=== PATIENT | male | born 1970 | race Caucasian/White ===

== ENCOUNTER 2016-06-11 09:08 | Emergency (ER) | payer OTHER ==
[2016-06-11 09:14] VITALS: BP 112/85; PULSE 67; TEMP 97.5; BMI 31.8
--- NOTE | 2016-06-11 10:04 | PDOC ---
History of Present Illness - General Chief Complaint: Injury Stated Complaint: LT ANKLE PAIN Time Seen by Provider: 06/11/16 09:17 History Source: Patient Exam Limitations: No Limitations - History of Present Illness Initial Comments: 06/11/16 10:00 LEFT ANKLE PAIN POST INVERSION INJURY OF THIS AM AT WORK Occurred: reports: just prior to arrival Severity: reports: mild Pain Location: reports: lower extremity Method of Injury: Yes: fall Past History - Past Medical History Allergies/Adverse Reactions: Allergies Allergy/AdvReac Type Severity Reaction Status Date / Time vancomycin AdvReac Intermediate Itching Verified 06/11/16 09:10 Home Medications: Ambulatory Orders NK [No Known Home Medication] 06/11/16 Other medical history: denies - Immunization History Immunization Up to Date: Yes (no flu) - Psycho/Social/Smoking Cessation Hx Anxiety: No Suicidal Ideation: No Smoking History: Former smoker Have you smoked in the past 12 months: No Information on smoking cessation initiated: No Hx Alcohol Use: No Drug/Substance Use Hx: No Substance Use Type: None Hx Substance Use Treatment: No Review of Systems - Review of Systems Constitutional: No: Symptoms Reported, Fever Respiratory: No: Cough ABD/GI: No: Symptoms Reported Musculoskeletal: Yes: Other (TENDER ANKLE LATERAL MALL.) Neurological: Yes: Weakness. No: Symptoms reported, Numbness, Paresthesia Endocrine: No: Symptoms Reported *Physical Exam - Vital Signs Last Vital Signs Temp Pulse Resp BP Pulse Ox 97.5 F L 67 20 112/85 97 06/11/16 09:11 06/11/16 09:11 06/11/16 09:11 06/11/16 09:11 06/11/16 09:11 - Physical Exam General Appearance: Yes: Appropriately Dressed. No: Apparent Distress Neck: positive: Supple. negative: Rigid Respiratory/Chest: positive: Lungs Clear Musculoskeletal: positive: Other (TENDER LATERAL ANKLE) Integumentary: positive: Other (sts, NO ECCHYMOSIS) ED Treatment Course - RADIOLOGY Radiology Studies Ordered: Category Date Time Status ANKLE-LEFT [RAD] Stat Radiology 06/11/16 09:26 Completed Medical Decision Making - Medical Decision Making 06/11/16 10:03 ANKLE STRAIN *DC/Admit/Observation/Transfer Diagnosis at time of Disposition: Strain of left ankle Qualifiers: Encounter type: initial encounter Qualified Code(s): S96.912A - Strain of unspecified muscle and tendon at ankle and foot level, left foot, initial encounter - Discharge Dispostion Disposition: HOME Condition at time of disposition: Stable Admit: No - Patient Instructions Additional Instructions: REST, ICE ELEVATE; USE CRUTCHES X 2 DAYS; SEE LOCAL MD NEXT WEEK IF NO BETTER - Post Discharge Activity Work/School Note: Back to Work
== END 2016-06-11 10:17 | disposition home or self-care (01) ==
LOC: JERFT 09:08
DX: S93.492A Sprain of other ligament of left ankle, initial encounter (principal); X50.1XXA Overexertion from prolonged static or awkward postures, initial encounter; Y93.H9 Activity, other involving exterior property and land maintenance, building and construction; Y92.89 Other specified places as the place of occurrence of the external cause; Y99.0 Civilian activity done for income or pay
CPT/HCPCS: 73610-TC-LT; 99281-25

== ENCOUNTER 2018-02-01 10:21 | Emergency (ER) | payer OTHER ==
[2018-02-01 10:29] VITALS: BP 123/75; PULSE 98; TEMP 98.3; BMI 33.9
--- NOTE | 2018-02-01 10:52 | PDOC ---
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 Last tetanus vaccine was 2 months ago Timing/Duration: 1-3 hours Past History - Past Medical History Allergies/Adverse Reactions: Allergies Allergy/AdvReac Type Severity Reaction Status Date / Time vancomycin AdvReac Intermediate Itching Verified 02/01/18 10:28 Home Medications: Ambulatory Orders Mupirocin Ointment [Bactroban 2% Ointment -] 1 applic TP BID #1 tube 02/01/18 Propranolol HCl 40 mg PO ASDIR 02/01/18 - Immunization History Immunization Up to Date: Yes (no flu) - Suicide/Smoking/Psychosocial Hx Smoking History: Never smoked Have you smoked in the past 12 months: No Information on smoking cessation initiated: No Hx Alcohol Use: No Drug/Substance Use Hx: No Substance Use Type: None Hx Substance Use Treatment: No Review of Systems - Review of Systems Able to Perform ROS?: Yes Is the patient limited Czech proficient: No Constitutional: No: Chills, Diaphoresis, Fever, Loss of Appetite, Malaise, Night Sweats, Weakness, Weight Stable, Unintentional Wgt. Loss, Unexplained wgt Loss, Other HEENTM: No: Eye Pain, Blurred Vision, Tearing, Recent change in vision, Double Vision, Cataracts, Ear Pain, Ocular Prothesis, Ear Discharge, Nose Pain, Nose Congestion, Tinnitus, Nose Bleeding, Hearing Loss, Throat Pain, Throat Swelling , Mouth Pain, Dental Problems, Difficulty Swallowing, Mouth Swelling, Other Respiratory: No: Cough, Orthopnea, Shortness of Breath, SOB with Exertion, SOB at Rest, Stridor, Wheezing, Productive cough, Hemoptysis, Other Cardiac (ROS): No: Chest Pain, Edema, Irregular Heart Rate, Lightheadedness, Palpitations, Syncope, Chest Tightness, Other ABD/GI: No: Abdominal Distended, Abd. Pain w/ defecation, Blood Streaked Bowels , Constipated, Diarrhea, Difficulty Swallowing, Nausea, Poor Appetite, Poor Fluid Intake, Rectal Bleeding, Vomiting, Indigestion, Abdominal cramping, Tarry Stools, Other Musculoskeletal: No: Back Pain, Gout, Joint Pain, Joint Swelling, Muscle Pain, Muscle Weakness, Neck Pain, Joint Stiffness, Other Integumentary: Yes: Other (laceration to left lower leg) All Other Systems: Reviewed and Negative *Physical Exam - Vital Signs Last Vital Signs Temp Pulse Resp BP Pulse Ox 98.3 F 98 H 16 123/75 100 02/01/18 10:24 02/01/18 10:24 02/01/18 10:24 02/01/18 10:24 02/01/18 10:24 - Physical Exam Comments: 02/01/18 10:51 GENERAL: Well developed, well nourished. Awake and alert. No acute distress. HEENT: Normocephalic, atraumatic. PERRLA, EOMI. No conjunctival pallor. Sclera are non- icteric. Moist mucous membranes. Oropharynx is clear. NECK: Supple. Full ROM. No JVD. Carotid pulses 2+ and symmetric, without bruits. No thyromegaly. No lymphadenopathy. CARDIOVASCULAR: Regular rate and rhythm. No murmurs, rubs, or gallops. Distal pulses are 2+ and symmetric. PULMONARY: No evidence of respiratory distress. Lungs clear to auscultation bilaterally. No wheezing, rales or rhonchi. ABDOMINAL: Soft. Non-tender. Non-distended. No rebound or guarding. No organomegaly. Normoactive bowel sounds. MUSCULOSKELETAL Normal range of motion at all joints. No bony deformities or tenderness. No CVA tenderness. EXTREMITIES: No cyanosis. No clubbing. No edema. No calf tenderness. SKIN: 1 cm superficial linear laceration to lateral aspects of left lower leg with mild bleeding. NEUROLOGICAL: Alert, awake, appropriate. Cranial nerves 2-12 intact. No deficits to light touch and temperature in face, upper extremities and lower extremities. No motor deficits in the in face, upper extremities and lower extremities. Normoreflexic in the upper and lower extremities. Normal speech. Toes are down- going bilaterally. Gait is normal without ataxia. PSYCHIATRIC: Cooperative. Good eye contact. Appropriate mood and affect. General Appearance: Yes: Nourished, Appropriately Dressed. No: Apparent Distress Procedures - Laceration/Wound Repair Left Lower Anterior Lateral Leg Wound Length: to 2.5 cm (1cm) Wound Explored: clean Wound's Depth, Shape: superficial, linear Irrigated w/ Saline: No Betadine Prep: Yes Wound Repaired With: Steri-strips, Dermabond Sterile Dressing Applied: Yes Splint Applied: No Sling Applied: No Medical Decision Making - Medical Decision Making 02/01/18 10:51 Patient with no sig Past medical history presenting with complaint of laceration to left lower leg while work today. Exam shows 1 cm superficial linear laceration to lateral aspect of left lower leg. Wound cleaned and closed with Dermabond. Steri-Strips applied to wound. Patient up-to-date on tetanus vaccine *DC/Admit/Observation/Transfer Diagnosis at time of Disposition: Laceration of left leg Qualifiers: Encounter type: initial encounter Qualified Code(s): S81.812A - Laceration without foreign body, left lower leg, initial encounter - Discharge Dispostion Disposition: HOME Condition at time of disposition: Stable Decision to Admit order: No - Prescriptions Prescriptions: Mupirocin Ointment [Bactroban 2% Ointment -] 1 applic TP BID #1 tube - Referrals Referrals: Deny Croft MD [Primary Care Provider] - - Patient Instructions Printed Discharge Instructions: DI for Laceration Repair Steri-Strips Additional Instructions: Apply prescribed topical cream twice a day to wound until healed. Remove apply Steri-Strips in 5 days - Post Discharge Activity
== END 2018-02-01 11:01 | disposition home or self-care (01) ==
LOC: JERFT 10:21
PROC: 0HQLXZZ Repair Left Lower Leg Skin, External Approach (ICD-10-PCS; principal; 2018-02-01)
DX: S81.812A Laceration without foreign body, left lower leg, initial encounter (principal); W45.8XXA Other foreign body or object entering through skin, initial encounter; W22.8XXA Striking against or struck by other objects, initial encounter; Y93.H2 Activity, gardening and landscaping; Y92.89 Other specified places as the place of occurrence of the external cause; Y99.0 Civilian activity done for income or pay
CPT/HCPCS: 99281-25

== ENCOUNTER 2019-02-04 11:20 | Emergency (ER) | payer BC, OTHER ==
[2019-02-04 11:26] VITALS: BP 96/60; PULSE 89; TEMP 97.5; BMI 34.5
--- NOTE | 2019-02-04 11:48 | PDOC ---
Attending Attestation - Resident Resident Name: Jose A Friendson - ED Attending Attestation I have performed the following: I have examined & evaluated the patient, The case was reviewed & discussed with the resident, I agree w/resident's findings & plan, Exceptions are as noted - HPI HPI: 48 yo M history headaches presents with RLE redness. He states that he noticed pain in his R lower leg upon waking up this morning. He looked at it and noticed that it was red, warm, and painful. He also noted that he had a fever yesteday. He has been taking ibuprofen for the fever. He states he had an abscess with cellulitis to the L knee area in the past, was admitted to the hospital for more than a week with the infection. - Physicial Exam PE: GENERAL: Awake, alert, and fully oriented, in no acute distress HEAD: No signs of trauma EYES: PERRLA, EOMI, sclera anicteric, conjunctiva clear ENT: Auricles normal inspection, hearing grossly normal, nares patent, oropharynx clear without exudates. Moist mucosa NECK: Normal ROM, supple, no lymphadenopathy, JVD, or masses LUNGS: Breath sounds equal, clear to auscultation bilaterally. No wheezes, and no crackles HEART: Regular rate and rhythm, normal S1 and S2, no murmurs, rubs or gallops ABDOMEN: Soft, nontender, normoactive bowel sounds. No guarding, no rebound. No masses EXTREMITIES: Normal range of motion, no edema. No clubbing or cyanosis. No cords, erythema, or tenderness NEUROLOGICAL: Cranial nerves II through XII grossly intact. Normal speech, normal gait. Motor and sensation intact SKIN: Warm, dry, normal turgor. +Erythema, warmth, and tenderness to R lower leg in a band-like distribution. Distal N/V intact with normal cap refill. - Medical Decision Making Pt with RLE cellulitis, no obvious source- no open lesions, no recent trauma. Will treat for MRSA. Although it is circumferential, there is no swelling, no evidence of vascular compromise. Discussed with patient- he does not want to be admitted to the hospital. Will outline the borders of the cellulitis. I urged him to return to the ED tomorrow to have the area re-examined to be sure it was improving. If it is not, I counseled him that he will have to be admitted for IV antibiotics.
--- NOTE | 2019-02-04 12:08 | PDOC ---
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 Patient reports acute right lower extremity redness, pain, and warmth beginning this AM. Yesterday (02/03/19 ) reports typical bi frontal, dull headache, followed by vomiting x 1 NBNB emesis, myalgais, "shaking," and fatigue. also reports oral temp 102.0 Tmax. Advil Q4 hours beginning yesterday. Recent travel [place], and [place] within 2 weeks. Self administered ( non prescribed) testosterone injections. H/o left knee abscess. Denies trauma RLE. Patient denies FULLER, vision change, palpitations, cough, wheezing, orthopena, PND , pruritus N/V, F,C, CP, SOB, urinary complaints, hematuria, BPR, abdominal pain , diarrhea, constipation, lightheadedness, weakness, sensory changes. PMHx: as noted above ROS: as noted SHx: distant tobacco use 1ppd x 15 years ago. Denies Etoh, IVDA. Allergies: Vancomycin-itching Past History - Past Medical History Allergies/Adverse Reactions: Allergies Allergy/AdvReac Type Severity Reaction Status Date / Time vancomycin AdvReac Intermediate Itching Verified 02/04/19 11:26 Home Medications: Ambulatory Orders Mupirocin Ointment [Bactroban 2% Ointment -] 1 applic TP BID #1 tube 02/01/18 Propranolol HCl 40 mg PO ASDIR 02/01/18 Cephalexin Monohydrate [Keflex -] 500 mg PO Q6H #28 capsule MDD 4 tab 02/04/19 Sulfamethoxazole/Trimethoprim [Bactrim Ds -] 1 tab PO BID #14 tablet 02/04/19 COPD: No - Immunization History Immunization Up to Date: Yes (no flu) - Suicide/Smoking/Psychosocial Hx Smoking History: Never smoked Have you smoked in the past 12 months: No Hx Alcohol Use: No Drug/Substance Use Hx: No Substance Use Type: None Hx Substance Use Treatment: No Review of Systems - Review of Systems Comments:: 02/04/19 11:51 GENERAL/CONSTITUTIONAL: No fever or chills. No weakness. HEAD, EYES, EARS, NOSE AND THROAT: No change in vision. No ear pain or discharge. No sore throat. CARDIOVASCULAR: No chest pain or shortness of breath RESPIRATORY: No cough, wheezing, or hemoptysis. GASTROINTESTINAL: No nausea, vomiting, diarrhea or constipation. GENITOURINARY: No dysuria, frequency, or change in urination. MUSCULOSKELETAL: + RLE redness. + myalgias. No neck or back pain. SKIN: No rash NEUROLOGIC: No headache, vertigo, loss of consciousness, or change in strength/ sensation. ENDOCRINE: No increased thirst. No abnormal weight change HEMATOLOGIC/LYMPHATIC: No anemia, easy bleeding, or history of blood clots. ALLERGIC/IMMUNOLOGIC: No hives or skin allergy. *Physical Exam - Vital Signs Last Vital Signs Temp Pulse Resp BP Pulse Ox 97.5 F L 89 18 96/60 99 02/04/19 11:22 02/04/19 11:22 02/04/19 11:22 02/04/19 11:22 02/04/19 11:22 - Physical Exam Comments: 02/04/19 11:51 GENERAL: Awake, alert, and fully oriented, in no acute distress HEAD: No signs of trauma, normocephalic, atraumatic EYES: PERRLA, EOMI, sclera anicteric, conjunctiva clear ENT: Auricles normal inspection, hearing grossly normal, nares patent, oropharynx clear without exudates. Moist mucosa NECK: Normal ROM, supple, no lymphadenopathy, JVD, or masses LUNGS: No distress, speaks full sentences, clear to auscultation bilaterally HEART: Regular rate and rhythm, normal S1 and S2, no murmurs, rubs or gallops, peripheral pulses normal and equal bilaterally. ABDOMEN: Soft, nontender, normoactive bowel sounds. No guarding, no rebound. No masses EXTREMITIES : + RLE erythema, extending from ankle to tib/fib, with clear, indistinct margins, warmth, and ttp. Absent edema, or streaking. Absent Normal inspection, Normal range of motion, no edema. No clubbing or cyanosis. 2 + pulses throughout. 5/5 LE strength. NEUROLOGICAL: Cranial nerves II through XII grossly intact. Normal speech, normal gait, no focal sensorimotor deficits SKIN: Warm, Dry, normal turgor, no rashes or lesions noted ED Treatment Course - LABORATORY CBC & Chemistry Diagram: 02/04/19 12:30 02/04/19 12:30 Medical Decision Making - Medical Decision Making 02/04/19 11:52 48 yo M with h/o HTN, FULLER disorder, who p/w RLE redness. BP 96/60, vitals wnl, AF , A&Ox3. Physical exam notable for + RLE erythema, extending from ankle to tib/ fib, with clear, indistinct margins, warmth, and ttp. RLE neurovasculalry intact. Probable cellulitss RLE. R/o DVT given recent flight, hormone supplementation. Absent evidence abscess, necrotizing fascitiis, lymphangitic spread. Will treat with oral analgesia, antibiotics, reassess. ED Course: Tylenol 650 mg PO DUPLEX RLE 02/04/19 12:20 Absent hand/face involvement, h/o immunocpromised status, or recent antibiotic use/treatment failure. Patient 0/4 SIRS criteria Patient candidate for outpt. therapy with PMD f/u Right tib/fib RAD: No acute patholgy Laboratory Tests 02/04/19 02/04/19 02/04/19 12:30 12:30 13:00 WBC 11.3 H Hgb 15.2 Hct 44.2 Plt Count 135 D Sodium 138 Potassium 4.6 BUN 23.2 H Creatinine 1.2 Urine Color Yellow Urine Appearance Clear Urine Blood 1+ H Urine Nitrite Negative Ur Leukocyte Esterase Negative Urine WBC (Auto) 1.5 Urine RBC (Auto) 4.6 stable for d/c with return precautions. 02/04/19 14:06 Keflex, and Bactrim sent to pharmacy Patient advised to f/u in ED for cellulitis check *DC/Admit/Observation/Transfer Diagnosis at time of Disposition: Cellulitis of right leg - Discharge Dispostion Condition at time of disposition: Stable Decision to Admit order: No - Prescriptions Prescriptions: Cephalexin Monohydrate [Keflex -] 500 mg PO Q6H #28 capsule MDD 4 tab Sulfamethoxazole/Trimethoprim [Bactrim Ds -] 1 tab PO BID #14 tablet - Referrals Referrals: Deny Croft MD [Primary Care Provider] - - Patient Instructions Printed Discharge Instructions: DI for Cellulitis -- Adult Additional Instructions: Please return to the emergency department with any new or worsening symptoms or concerns. Please follow up with your primary care physician within 72 hours. Please take Bactrim twice a day, Keflex four times a day for right leg cellulitis/infection. - Post Discharge Activity
[2019-02-04] MEDS ORDERED: ACETAMINOPHEN 325 MG TABLET (FP) PO ONE (12:10)
[2019-02-04] MEDS ORDERED: ACETAMINOPHEN 325 MG TABLET (FP) ONE (12:16)
[2019-02-04] MEDS ORDERED: SULFAMETHOXAZOLE/TRIMETHOPRIM 800MG/160MG D.S. TABLET PO ONE (12:32)
[2019-02-04] MEDS ORDERED: SULFAMETHOXAZOLE/TRIMETHOPRIM 800MG/160MG D.S. TABLET ONE (12:45)
[2019-02-04 13:02] LABS: BASO % 0.2 % (0-2.0); HEMATOCRIT 44.2 % (35.4-49); HEMOGLOBIN 15.2 GM/dL (11.7-16.9); LYMPH % 4.3 % (8-40); MCHC 34.3 g/dl (32.0-35.9); MEAN CELL VOLUME 87.6 fl (80-96); MEAN PLT VOLUME 8.5 fl (7.5-11.1); MONO % 5.2 % (3.8-10.2); NEUT % 90.3 % (42.8-82.8); PLATELET COUNT 135 K/MM3 (134-434); RBC 5.05 M/mm3 (4.00-5.60); RDW 13.4 % (11.9-15.9); WHITE BLOOD COUNT 11.3 K/mm3 (4.0-10.0)
[2019-02-04 13:30] LABS: ALBUMIN 3.7 g/dl (3.4-5.0); BILIRUBIN,TOTAL 0.9 mg/dL (0.2-1); BLOOD UREA NITROGEN 23.2 mg/dL (7-18); CALCIUM 9.1 mg/dL (8.5-10.1); CREATININE 1.2 mg/dL (0.55-1.3); POTASSIUM 4.6 mmol/L (3.5-5.1); TOT PROT 6.8 g/dl (6.4-8.2)
[2019-02-04 13:31] LABS: PH,URINE 5.5 (5.0-8.0); URINE APPEARANCE Clear; URINE BILIRUBIN Negative (NEGATIVE); URINE COLOR Yellow; URINE GLUCOSE (UA) Negative (NEGATIVE); URINE KETONE Trace (NEGATIVE); URINE LEUK ESTERASE Negative (NEGATIVE); URINE NITRITE Negative (NEGATIVE); URINE PROTEIN Trace (NEGATIVE); URINE UROBILINOGEN 0.2 mg/dL (0.2-1.0)
[2019-02-04 13:41] LABS: EPI CELLS 1.9 /HPF (0-5/HPF); HYALINE CASTS 16.94 /lpf (0-8); URINE BACTERIA 0.5 /hpf (NEGATIVE); URINE RBC 4.6 /hpf (0-4); URINE WBC 1.5 /hpf (0-5)
[2019-02-04] MEDS ORDERED: CEPHALEXIN MONOHYDRATE 500 MG CAPSULE (UD) PO ONE (14:07)
[2019-02-04] MEDS ORDERED: CEPHALEXIN MONOHYDRATE 500 MG CAPSULE (UD) ONE (14:34)
== END 2019-02-04 14:56 | disposition home or self-care (01) ==
LOC: JER 11:20
DX: L03.115 Cellulitis of right lower limb (principal)
CPT/HCPCS: 36415; 73590-TC-RT-FY; 80053; 81003; 85025; 87040; 93971-TC; 99283-25

== ENCOUNTER 2019-02-04 20:58 | Inpatient (IN) | payer BC ==
[2019-02-04] MEDS ORDERED: AMPICILLIN NA/SULBACTAM NA 1.5 GM in SODIUM CHLORIDE 100 ML IVPB ONE (21:24)
[2019-02-04] MEDS ORDERED: SODIUM CHLORIDE 0.9% 500 ML INFUS.BAG IV ONE (21:24)
[2019-02-04] MEDS ORDERED: AMPICILLIN NA/SULBACTAM NA 3 GM in SODIUM CHLORIDE 100 ML IVPB ONE (21:30)
--- NOTE | 2019-02-04 22:05 | PDOC ---
Documentation entered by Janice Castellon SCRIBE, acting as scribe for Alexandria Rich MD. Alexandria Rich MD: This documentation has been prepared by the Ravinder cary Adrianna, SCRIBE, under my direction and personally reviewed by me in its entirety. I confirm that the documentation accurately reflects all work, treatment, procedures, and medical decision making performed by me. History of Present Illness - General Chief Complaint: Redness To Affected Area Stated Complaint: CELLULITIS RT LEG Time Seen by Provider: 02/04/19 21:12 - History of Present Illness Initial Comments: The patient is a 48 year old male, with a significant PMH of headache disorder, who presents to the ED for evaluation of RLE cellulitis for one day. Patient was seen in the ED earlier today for this complaint, and was discharged with antibiotics. Patient notes the cellulitis continued to spread, and he presents with redness spreading to the upper half of the RLE outside of the marked lines (from ankle to mid-alcantara to now knee and thigh) done earlier today in the ED. He endorses pain with ambulation, chills, and fevers (max temp of 102 for which he took tylenol prior to arrival). US in ED earlier today was negative for DVT. Patient denies trauma to the RLE. Patient denies CP, SOB, urinary complaints, abdominal pain, diarrhea, constipation, lightheadedness, weakness, sensory changes. Allergies: Vancomycin Surgical History: None reported Social History: Former smoker. Denies EtOH or illicit drug use. PCP: Dr. Croft Past History - Past Medical History Allergies/Adverse Reactions: Allergies Allergy/AdvReac Type Severity Reaction Status Date / Time No Known Drug Allergies Allergy Verified 02/05/19 13:32 vancomycin AdvReac Intermediate Itching Verified 02/04/19 21:03 Home Medications: Ambulatory Orders Mupirocin Ointment [Bactroban 2% Ointment -] 1 applic TP BID #1 tube 02/01/18 Propranolol HCl 20 mg PO BID 02/01/18 Cephalexin Monohydrate [Keflex -] 500 mg PO Q6H #28 capsule MDD 4 tab 02/04/19 Sulfamethoxazole/Trimethoprim [Bactrim Ds -] 1 tab PO BID #14 tablet 02/04/19 COPD: No - Immunization History Immunization Up to Date: Yes (no flu) - Suicide/Smoking/Psychosocial Hx Smoking History: Never smoked Have you smoked in the past 12 months: No Hx Alcohol Use: No Drug/Substance Use Hx: No Substance Use Type: None Hx Substance Use Treatment: No Review of Systems - Review of Systems Comments:: GENERAL/CONSTITUTIONAL: +Fever (max temp 102). +Chills. No weakness. HEAD, EYES, EARS, NOSE AND THROAT: No change in vision. No ear pain or discharge. No sore throat. CARDIOVASCULAR: No chest pain or shortness of breath. RESPIRATORY: No cough, wheezing, or hemoptysis. GASTROINTESTINAL: No diarrhea or constipation. GENITOURINARY: No dysuria, frequency, or change in urination. MUSCULOSKELETAL:+RLE pain exacerbated with ambulation. No joint or muscle swelling. No neck or back pain. SKIN: +RLE redness and cellulitis that has spread outside of the marked lines ( from ankle to mid-alcantara) traveling to the upper half of the RLE (over knee and thigh). NEUROLOGIC: No headache, vertigo, loss of consciousness, or change in strength/ sensation. ENDOCRINE: No increased thirst. No abnormal weight change. HEMATOLOGIC/LYMPHATIC: No anemia, easy bleeding, or history of blood clots. *Physical Exam - Vital Signs Last Vital Signs Temp Pulse Resp BP Pulse Ox 98.6 F 105 H 18 96/57 L 99 02/04/19 21:01 02/04/19 21:01 02/04/19 21:01 02/04/19 21:01 02/04/19 21:01 - Physical Exam Comments: CONSTITUTIONAL: Well-appearing; well-nourished; in no apparent distress. Afebrile HEAD: Normocephalic; atraumatic EYES: PERRL; EOM intact ENMT: External appears normal; normal oropharynx NECK: Supple; non-tender; no cervical lymphadenopathy CARD: Normal S1, S2; no murmurs, rubs, or gallops RESP: Normal chest excursion with respiration; breath sounds clear and equal bilaterally; no wheezes, rhonchi, or rales ABD: Soft, non-distended; non-tender; no palpable organomegaly, no palpable hernias EXT: +Circumferential dark red cellulitis of the RLE without crepitus. +Patches of cellulitis traveling up his leg, most prominent at the knee and upper thigh. No calf tenderness. Normal ROM in all four extremities; distal pulses intact SKIN: +Circumferential dark red cellulitis of the RLE without crepitus. + Patches of cellulitis traveling up his leg, most prominent at the knee and upper thigh. No calf tenderness. NEURO: No focal neurological deficiencies. Heart Score/ECG Review - ECG Intrepretation Rhythm: Regular Rhythm - [place]: Normal - P and [place] Prominent R with upright T in V1 (true posterior [place]): No Delta Wave(s) Present: No WPW: No - ST and T Early Repolarization: No Non Specific ST-T Wave changes: No - ECG Impressions Normal ECG: Yes Non-specific ST Elevation: No Ischemic Changes: No ED Treatment Course - LABORATORY CBC & Chemistry Diagram: 02/05/19 07:49 02/05/19 07:49 - Medications Given in the ED: ED Medications Discontinued Medications Generic Name Dose Route Start Last Admin Trade Name Freq PRN Reason Stop Dose Admin Ampicillin Sodium/Sulbactam 100 mls @ 200 mls/hr 02/04/19 21:24 02/04/19 21: 34 Sodium 1.5 gm/ Sodium Chloride IVPB 02/04/19 21:53 Not Given ONCE ONE Sodium Chloride 1,000 ml 02/04/19 21:24 02/04/19 21:53 Normal Saline - IV 02/04/19 21:25 1,000 ml ONCE ONE Administration Medical Decision Making - Medical Decision Making 02/04/19 22:04 Pt returns with worsening lymphangitic spread of cellulitis up his right leg. He also had fever to 102F at home, resolved with advil. 02/04/19 22:21 CBC and lactic acid normal, however, cellulitis/lymphangitis are spreading. Pt has considerable pain. 02/05/19 21:55 Pt will be admitted for IV abx *DC/Admit/Observation/Transfer Diagnosis at time of Disposition: Cellulitis of right leg, Cellulitis of left thigh, Cellulitis of knee, left, Lymphangitis - Discharge Dispostion Condition at time of disposition: Guarded Decision to Admit order: Yes - Referrals - Patient Instructions - Post Discharge Activity
[2019-02-04 22:11] LABS: BASO % 0.4 % (0-2.0); HEMATOCRIT 42.1 % (35.4-49); HEMOGLOBIN 14.7 GM/dL (11.7-16.9); LYMPH % 8.8 % (8-40); MCHC 34.9 g/dl (32.0-35.9); MEAN CELL VOLUME 85.9 fl (80-96); NEUT % 84.8 % (42.8-82.8); PLATELET COUNT 140 K/MM3 (134-434); RDW 13.3 % (11.9-15.9); WHITE BLOOD COUNT 8.3 K/mm3 (4.0-10.0)
[2019-02-04] MEDS ORDERED: CEFAZOLIN 1 GM/D5W 1 GM/50 ML BAG IVPB SCH (23:15)
[2019-02-04] MEDS ORDERED: CEFAZOLIN 1 GM/D5W 1 GM/50 ML BAG ONE (23:19)
--- NOTE | 2019-02-04 23:42 | HP ---
CHIEF COMPLAINT: RLE cellulitis PCP: None HISTORY OF PRESENT ILLNESS: Pt. is a 48 y.o. M w/ PMHx. of LLE cellulitis and abcess (MRSA positive treated with Ceftaroline and Bactrim). Pt. states that when he woke up this AM he noticed his RLE was red around the alcantara and that the lesion was painful to palpation ER course was notable for: (1) (2) (3) Recent Travel: PAST MEDICAL HISTORY: PAST SURGICAL HISTORY: Social History: Smoking: Alcohol: Drugs: Family History: Allergies vancomycin Adverse Reaction (Intermediate, Verified 02/04/19 21:03) Itching RECEIVED IN ER HOME MEDICATIONS: Home Medications Medication Instructions Recorded Mupirocin Ointment [Bactroban 2% 1 applic TP BID #1 tube 02/01/18 Ointment -] Propranolol HCl 20 mg PO BID 02/01/18 Cephalexin Monohydrate [Keflex -] 500 mg PO Q6H #28 capsule MDD 4 tab 02/04/19 Sulfamethoxazole/Trimethoprim 1 tab PO BID #14 tablet 02/04/19 [Bactrim Ds -] REVIEW OF SYSTEMS CONSTITUTIONAL: Absent: fever, chills, diaphoresis, generalized weakness, malaise, loss of appetite, weight change HEENT: Absent: rhinorrhea, nasal congestion, throat pain, throat swelling, difficulty swallowing, mouth swelling, ear pain, eye pain, visual changes CARDIOVASCULAR: Absent: chest pain, syncope, palpitations, irregular heart rate, lightheadedness , peripheral edema RESPIRATORY: Absent: cough, shortness of breath, dyspnea with exertion, orthopnea, wheezing, stridor, hemoptysis GASTROINTESTINAL: Absent: abdominal pain, abdominal distension, nausea, vomiting, diarrhea, constipation, melena, hematochezia GENITOURINARY: Absent: dysuria, frequency, urgency, hesitancy, hematuria, flank pain, genital pain MUSCULOSKELETAL: Absent: myalgia, arthralgia, joint swelling, back pain, neck pain SKIN: Absent: rash, itching, pallor HEMATOLOGIC/IMMUNOLOGIC: Absent: easy bleeding, easy bruising, lymphadenopathy, frequent infections ENDOCRINE: Absent: unexplained weight gain, unexplained weight loss, heat intolerance, cold intolerance NEUROLOGIC: Absent: headache, focal weakness or paresthesias, dizziness, unsteady gait, seizure, mental status changes, bladder or bowel incontinence PSYCHIATRIC: Absent: anxiety, depression, suicidal or homicidal ideation, hallucinations. PHYSICAL EXAMINATION Vital Signs - 24 hr 02/04/19 02/04/19 21:01 21:10 Temperature 98.6 F Pulse Rate 105 H Respiratory 18 Rate Blood Pressure 96/57 L O2 Sat by Pulse 99 99 Oximetry (%) GENERAL: Awake, alert, and fully oriented, in no acute distress. HEAD: Normal with no signs of trauma. EYES: Pupils equal, round and reactive to light, extraocular movements intact, sclera anicteric, conjunctiva clear. No lid lag. EARS, NOSE, THROAT: Ears normal, nares patent, oropharynx clear without exudates. Moist mucous membranes. NECK: Normal range of motion, supple without lymphadenopathy, JVD, or masses. LUNGS: Breath sounds equal, clear to auscultation bilaterally. No wheezes, and no crackles. No accessory muscle use. HEART: Regular rate and rhythm, normal S1 and S2 without murmur, rub or gallop. ABDOMEN: Soft, nontender, not distended, normoactive bowel sounds, no guarding, no rebound, no masses. No hepatomegaly or splenomegaly. MUSCULOSKELETAL: Normal range of motion at all joints. No bony deformities or tenderness. No CVA tenderness. UPPER EXTREMITIES: 2+ pulses, warm, well-perfused. No cyanosis. No clubbing. No peripheral edema. LOWER EXTREMITIES: 2+ pulses, warm, well-perfused. No calf tenderness. No peripheral edema. NEUROLOGICAL: Cranial nerves II-XII intact. Normal speech. Normal gait. PSYCHIATRIC: Cooperative. Good eye contact. Appropriate mood and affect. SKIN: Warm, dry, normal turgor, no rashes or lesions noted, normal capillary refill. Laboratory Results - last 24 hr 02/04/19 02/04/19 21:40 21:40 WBC 8.3 RBC 4.90 Hgb 14.7 Hct 42.1 MCV 85.9 MCH 30.0 MCHC 34.9 RDW 13.3 Plt Count 140 MPV 9.0 Absolute Neuts (auto) 7.0 Neutrophils % 84.8 H Lymphocytes % 8.8 D Monocytes % 6.0 Eosinophils % 0.0 Basophils % 0.4 Nucleated RBC % 0 Lactic Acid 0.8 ASSESSMENT/PLAN: ATTENDING PHYSICIAN STATEMENT I saw and evaluated the patient. I reviewed the resident's note and discussed the case with the resident. I agree with the resident's findings and plan as documented. SUBJECTIVE: OBJECTIVE: ASSESSMENT AND PLAN:
--- NOTE | 2019-02-05 00:09 | PN ---
Teaching Attending Note Name of Resident: Ceferino Zamora ATTENDING PHYSICIAN STATEMENT I saw and evaluated the patient. Chart, data, reviewed. I reviewed the resident's note and discussed the case with the resident. I agree with the resident's findings and plan as documented. SUBJECTIVE: 48yo man with had Left lower ext MRSA cellulitis in 2016, presents with one day of right leg erythema ,pain, warmth. Denied fevers or chills. No cuts or trauma to leg that he can recall. Patient seen earlier in ER and prescribed bactrim, keflex but returned to er before taking po abx due to worsening of erythema. OBJECTIVE: Last Vital Signs Temp Pulse Resp BP Pulse Ox 98.6 F 105 H 18 96/57 L 99 02/04/19 21:01 02/04/19 21:01 02/04/19 21:01 02/04/19 21:01 02/04/19 21:10 general - nad, aaox3, well built heent - at, nc neck supple cv -s1+s2+ rrr chest clear abdomen -obese ext -right leg circumferencial erythema, no fluctuance, no abscess appreciated, warm to touch Abnormal Lab Results 02/04/19 21:40 Neutrophils % 84.8 H xray- right leg- wnl, vascular study- no dvt ASSESSMENT AND PLAN: right leg cellulitis, past mrsa, previous culture was senstive to clindamycin. Vancomycin allergy might actually be red person syndome. No DVT, no abscess seen. -med/surg -blood culture x2 -clindamycin 600mg IV q8hrs -IV fluid hydration -dvt ppx -heparin sc
[2019-02-05] MEDS ORDERED: CLINDAMYCIN 600MG PREMIX IVPB 600 MG/50 ML BAG IVPB ONE ×2 (02:33→08:38)
[2019-02-05] MEDS: SODIUM CHLORIDE 1,000 ML IV SCH ×2 (02:37→08:48)
[2019-02-05] MEDS: CLINDAMYCIN 600MG PREMIX IVPB 600 MG/50 ML BAG IVPB SCH ×2 (02:37→09:00)
[2019-02-05] MEDS ORDERED: ENOXAPARIN NA (PORCINE) 40 MG/0.4 ML DISP.SYRIN SQ ONE (08:38)
[2019-02-05] MEDS ORDERED: PANTOPRAZOLE SODIUM 40 MG VIAL ONE (08:39)
[2019-02-05] MEDS ORDERED: PIPERACILLIN/TAZOB 3.375 GM 3.375 GM/50 ML BAG IVPB ONE (09:10)
[2019-02-05] MEDS ORDERED: PIPERACILLIN/TAZOB 4.5 GM 4.5 GM in DEXTROSE 5%-WATER 100 ML IVPB ONE (09:17)
[2019-02-05] MEDS ORDERED: PIPERACILLIN/TAZOB 4.5 GM 4.5 GM/100 ML BAG IVPB ONE (09:19)
--- NOTE | 2019-02-05 09:25 | PN ---
Progress Note (short form) - Note Progress Note: Subjective: no fever or chills here, but reports fever and chills and body aches x 2 days. has no pain in R leg but it is bothering shantelm. no FULLER , took his propranolol this am. Objective: Vital Signs: Last Vital Signs Temp Pulse Resp BP Pulse Ox 98.2 F 81 18 114/71 99 02/05/19 08:25 02/05/19 08:25 02/05/19 08:25 02/05/19 08:25 02/05/19 08:25 Laboratory Results - last 24 hr 02/04/19 02/04/19 21:40 21:40 WBC 8.3 RBC 4.90 Hgb 14.7 Hct 42.1 MCV 85.9 MCH 30.0 MCHC 34.9 RDW 13.3 Plt Count 140 MPV 9.0 Absolute Neuts (auto) 7.0 Neutrophils % 84.8 H Lymphocytes % 8.8 D Monocytes % 6.0 Eosinophils % 0.0 Basophils % 0.4 Nucleated RBC % 0 Lactic Acid 0.8 Physical Exam: NAD , Awake, pleasant and cooperative . MMM. round equal reactive pupils, no facial droop. CV: RRR, no MRG Lungs: CTAB Abd: soft, obese, NT, ND. Ext : R leg circumferential erythema. with extension beyond the line. with streaking to the anterior thigh. No lymph nodes felt in grois. LLE with no erythema or edema . DP 2+ b/l No fungal infection in toes webs . No skin break down Assessment/Plan: Pleasant 48 y/o man with h/o Migraines, and L knee MRSA cellulitis who presented with worsening erythema of RLE. he was diagnosed with cellulitis 1- RLE cellulitis: reports systemic symptoms of chills, fevers, and aches. erythema is extending beyond the line drawn yesterday. received unasyn then clindamycin. In past, he report itching during vanco infusion , which stopped immediately after infusion Previous cx reviewed. - cont clinda - add zosyn - blood cx sent on 02/04 will follow - consult ID. - repeat CBC. - monitor for sepsis signs - cont IVF for now 2- H/o Migraines: - cont propranolol - if needed can use NSAIDs for FULLER 3- DVT PX : Lovenox Visit type - Emergency Visit Emergency Visit: Yes ED Registration Date: 02/04/19 Care time: The patient presented to the Emergency Department on the above date and was hospitalized for further evaluation of their emergent condition. - New Patient This patient is new to me today: Yes Date on this admission: 02/05/19 - Critical Care Critical Care patient: No
[2019-02-05] MEDS: ENOXAPARIN NA (PORCINE) 40 MG/0.4 ML DISP.SYRIN SQ SCH (09:34)
[2019-02-05 09:40] LABS: BASO % 0.3 % (0-2.0); EOS % 0.2 % (0-4.5); HEMATOCRIT 40.7 % (35.4-49); HEMOGLOBIN 13.9 GM/dL (11.7-16.9); LYMPH % 16.1 % (8-40); MCH 29.8 pg (25.7-33.7); MCHC 34.2 g/dl (32.0-35.9); MEAN CELL VOLUME 87.2 fl (80-96); MEAN PLT VOLUME 9.5 fl (7.5-11.1); MONO % 8.1 % (3.8-10.2); NEUT % 75.3 % (42.8-82.8); PLATELET COUNT 132 K/MM3 (134-434); RBC 4.67 M/mm3 (4.00-5.60); RDW 13.3 % (11.9-15.9); WHITE BLOOD COUNT 6.7 K/mm3 (4.0-10.0)
[2019-02-05 09:55] LABS: BLOOD UREA NITROGEN 14.7 mg/dL (7-18); CALCIUM 8.5 mg/dL (8.5-10.1); CREATININE 1.1 mg/dL (0.55-1.3); MAGNESIUM 2.2 mg/dL (1.8-2.4); POTASSIUM 4.4 mmol/L (3.5-5.1)
[2019-02-05] MEDS ORDERED: PANTOPRAZOLE SODIUM 40 MG VIAL IVPUSH SCH (10:00)
[2019-02-05] MEDS ORDERED: ACETAMINOPHEN 325 MG TABLET (FP) ONE (12:46)
[2019-02-05] MEDS: ACETAMINOPHEN 325 MG TABLET (FP) PO PRN ×2 (12:55→22:14)
[2019-02-05] MEDS ORDERED: VANCOMYCIN HCL 1,500 MG in DEXTROSE 5%-WATER - 500 ML IVPB ONE (13:23)
[2019-02-05] MEDS ORDERED: diphenhydrAMINE HCL 25 MG CAPSULE (FP) PO ONE ×2 (13:25→13:29)
--- NOTE | 2019-02-05 13:43 | PN ---
Progress Note (short form) - Note Progress Note: ID consult dictated 48 yo man history of MRSA prepatellar bursitis Left knee with cellulitis developed fevers and chills starting Wednesday afternoon he started taking advil evr 4 to 6 hours, he cam to ED on Wednesday after he awake and noted he had a painful red left lower leg he was seen in the ED and blood cultures were sent- he was started on bactrim/ keflex and discharged home that evening he was noted to have increasing erythema of the leg with continued fever and chills and came back to the ED and was admitted now with lymphagitic streakng above the right knee not diabetic travel history- recent trip to [facility]- swam in salt water pool with dolphins and fish no beach returned last weekend recent dental work early december- requiring extraction and bone graft- amox taken twice vancomycin "allergy" c/w vangie's syndrome PE notable with erythema and warmth RLE with patchy erythema extending to the knee and lymphagitic streaking above the knee to the upper thigh (marked) no open sores, no crepitus of the leg noted ?left eye conjunctival hemorrhage labs WNL severe cellulitis of the leg-?strep, consider MRSA given prior history but no abscess noted prior history of MRSA recent dental work travel to [place] suggest vancomycin with premeds-d/w pharmacy and nursing staff ceftriaxone echo antidnase B d/w hospitalist Problem List - Problems (1) Cellulitis Code(s): L03.90 - CELLULITIS, UNSPECIFIED (2) Lymphangitis Code(s): I89.1 - LYMPHANGITIS (3) History of MRSA infection Code(s): Z86.14 - PERSONAL HISTORY OF METHICILLIN RESIS STAPH INFECTION
--- NOTE | 2019-02-05 15:07 | CONS ---
DATE OF CONSULTATION: DATE OF DICTATION: 02/05/2019 This is a 48-year-old man with a prior history of MRSA, prepatellar bursitis of the left knee with cellulitis in 2016. He did develop fevers and chills starting on Wednesday. There are no cuts or trauma to the leg. He was seen in the emergency room on Wednesday earlier in the day and was started on Bactrim and Keflex. He was given a dose in the ER before he left. He had a duplex of his leg done in the ER that was negative for DVT, and he had an x-ray done as well. He was discharged in the afternoon and returned later the same day with complaints of increasing erythema now spreading to the upper half of the right lower extremity. It had been marked earlier. He also had fevers and chills at home as high as 102. He denies any sore throat. He denies any urinary complaints, diarrhea, nausea or vomiting. His past medical history is notable for the prior MRSA cellulitis and he takes propranolol for migraine headaches. He has never had any surgery. SOCIAL HISTORY: Former smoker. No substance use. He does self-inject testosterone but has not done this for at least a month now. There is a travel history. He went to [place] last week. He went to [place] with his and kids and they only swam at the hotel pool, they did not go to the beach, but they did swim with dolphins. Of note, as well, he recently had dental extractions in early December, requiring bone grafts and he took courses of amoxicillin. He had a reaction to vancomycin in the past when it was given with his prior infection in 2016 when he developed scalp itching at the time of infusion that resolved with stopping the vancomycin. He takes propranolol and he was just started on the Keflex and Bactrim, which he did not take another dose of prior to coming back to the emergency room. SOCIAL HISTORY: He is , he lives with his and kids. He works for the [employer]. REVIEW OF SYSTEMS: He has had these fevers, chills, myalgias. He has no change in vision. He has no nausea, vomiting, sore throat, diarrhea, or dysuria. PHYSICAL EXAMINATION: General: He is awake and alert. Vital Signs: His temperature this morning is 98.2. Pulse 81. Blood pressure 114/71. Respiratory rate of 187. He is saturating 99% on room air. HEENT: Normocephalic. His eyes are anicteric. He has no pharyngitis. On his left eye, there is a question of whether he has a subconjunctival hemorrhage. Lungs: Clear to auscultation. Heart: Regular rate and rhythm. I do not hear a murmur. Abdomen: Soft, nontender. Extremities: His right lower leg, he has erythema and warmth of the lower leg. He has some patchy erythema of the upper aspect of the right lower extremity. He has no evidence of any knee effusion or difficulty moving his knee joint. He has evidence of streaky lymphangitis going up the right leg to his thigh. Labs are notable. He originally presented with a white count of 11.3, this morning it is 6.7, hemoglobin 13.9, platelets 132. BUN 14, creatinine 1.1. LFTs are normal. Lactic acid is 0.8. Urinalysis leukocyte esterase is negative. Blood cultures sent from admission are pending. Tibia and fibula x-ray is negative. There is no air in the vascular x-ray as well. There is no DVT. In summary, this is a 48-year-old man with severe cellulitis of his leg. Would consider streptococcus, given the nature of the presentation. Must consider MRSA, given the prior history, but no abscess is noted. He did have recent dental work as well, as well as recent travel. Suggest we treat him with vancomycin with pre meds. Would continue Zosyn. Would obtain an echo and antiDNase level to evaluate for group A strep infection. Clinically, he appears to be quite comfortable and clinically stable. Further recommendations to follow. The case was discussed at length with the hospitalist. VANNA OLMSTEAD M.D. WINDY/[id number] LIZ
[2019-02-05] MEDS ORDERED: CEFTRIAXONE 2 GM/100 ML BAG IVPB ONE (16:21)
[2019-02-05] MEDS: CEFTRIAXONE 2 GM in DEXTROSE 5%-WATER 100 ML IVPB SCH (16:29)
--- NOTE | 2019-02-05 16:39 | EKG ---
Test Reason : Blood Pressure : / mmHG Vent. Rate : 089 BPM Atrial Rate : 089 BPM P-R Int : 178 ms QRS Dur : 082 ms QT Int : 346 ms P-R-T Axes : 029 003 020 degrees QTc Int : 420 ms NORMAL SINUS RHYTHM CANNOT RULE OUT INFERIOR INFARCT , AGE UNDETERMINED ABNORMAL ECG WHEN COMPARED WITH ECG OF 13-SEP-2015 16:30, NO SIGNIFICANT CHANGE WAS FOUND Confirmed by KYLEE GRACE MD ([id number]) on 02/05/2019 4:39:16 PM Referred By: Confirmed By:KYLEE GRACE MD
[2019-02-05] MEDS ORDERED: PIPERACILLIN/TAZOB 4.5 GM 4.5 GM in DEXTROSE 5%-WATER 100 ML IVPB SCH (18:00)
[2019-02-05 20:52] VITALS: BMI 33.7
[2019-02-06] MEDS: diphenhydrAMINE HCL 25 MG CAPSULE (FP) PO SCH ×2 (00:36→14:42)
[2019-02-06] MEDS ORDERED: PT OWN MED DRAWER 7, Y5N ONE ×3 (01:12→22:04)
[2019-02-06] MEDS: VANCOMYCIN 1,250 MG in DEXTROSE 5%-WATER - 250 ML IVPB SCH ×2 (01:20→15:22)
[2019-02-06 07:49] LABS: BASO % 0.6 % (0-2.0); EOS % 2.4 % (0-4.5); HEMATOCRIT 41.5 % (35.4-49); HEMOGLOBIN 14.1 GM/dL (11.7-16.9); LYMPH % 26.1 % (8-40); MCH 29.9 pg (25.7-33.7); MCHC 34.1 g/dl (32.0-35.9); MEAN CELL VOLUME 87.7 fl (80-96); MEAN PLT VOLUME 8.8 fl (7.5-11.1); MONO % 11.7 % (3.8-10.2); NEUT % 59.2 % (42.8-82.8); PLATELET COUNT 138 K/MM3 (134-434); RBC 4.73 M/mm3 (4.00-5.60); RDW 13.3 % (11.9-15.9); WHITE BLOOD COUNT 5.1 K/mm3 (4.0-10.0)
[2019-02-06 07:57] LABS: BLOOD UREA NITROGEN 12.2 mg/dL (7-18); CALCIUM 8.5 mg/dL (8.5-10.1); CREATININE 1.1 mg/dL (0.55-1.3); POTASSIUM 4.1 mmol/L (3.5-5.1)
[2019-02-06] MEDS ORDERED: DEXTROSE 5%-WATER 100 ML IVPB ONE (09:33)
[2019-02-06] MEDS: ENOXAPARIN NA (PORCINE) 40 MG/0.4 ML DISP.SYRIN SQ SCH (09:39)
[2019-02-06] MEDS: CEFTRIAXONE 2 GM in DEXTROSE 5%-WATER 100 ML IVPB SCH (09:40)
--- NOTE | 2019-02-06 10:44 | PN ---
Progress Note (short form) - Note Progress Note: no fevers or chills overnight Vital Signs Period Temp Pulse Resp BP Sys/Ribeiro Pulse Ox Last 24 Hr 98.0 F-99.5 F 78-88 18-20 109-125/62-79 97-97 left eye finding unchanged cor-rrr lungs clear abd soft,nt ext leg less erythema, lymphagitis receding +palpable right inguinal adenopathy CBC, BMP 02/06/19 06:45 02/06/19 06:45 blood cultures 02/04 negative a/p severe cellulitis of the leg-?strep, consider MRSA given prior history but no abscess noted-appears improved prior history of MRSA recent dental work recent travel to [place] vancomycin/rocephin echo antidnase B esr/crp
[2019-02-06 11:47] LABS: ANISOCYTOSIS 0; MACROCYTOSIS 0; PLATELET ESTIMATE DECREASED
[2019-02-06] MEDS: ACETAMINOPHEN 325 MG TABLET (FP) PO PRN (12:05)
--- NOTE | 2019-02-06 12:25 | ECHO ---
Name: ANDREA EISENBERG Exam:Adult Echocardiogram Study Date: 02/06/2019 10:15 AM Age: 48 yrs Reason For Study: R/O VEGETATIONS Height: 72 in Weight: 255 lb BSA: 2.4 m2 MMode/2D Measurements & Calculations IVSd: 1.1 cm Ao root diam: 3.0 cm LVIDd: 4.1 cm LA dimension: 3.3 cm LVIDs: 2.4 cm LVPWd: 1.2 cm LVPWs: 2.1 cm EDV(Teich): 72.2 ml ESV(Teich): 20.6 ml Doppler Measurements & Calculations MV E max nancy: 44.4 cm/sec Ao V2 max: 113.6 cm/sec MV A max nancy: 80.5 cm/sec Ao max P.2 mmHg MV E/A: 0.55 Ao V2 mean: 76.1 cm/sec MV dec time: 0.12 sec Ao mean P.7 mmHg Ao V2 VTI: 20.2 cm LV V1 max P.3 mmHg PA V2 max: 96.2 cm/sec LV V1 mean P.8 mmHg PA max P.7 mmHg LV V1 max: 91.3 cm/sec LV V1 mean: 60.3 cm/sec LV V1 VTI: 16.6 cm Med Peak E' Nancy: 7.3 cm/sec Med E/e': 6.1 Lat Peak E' Nancy: 9.3 cm/sec Lat E/e': 4.8 Procedure A complete two-dimensional transthoracic echocardiogram was performed (2D, M-mode, Doppler and color flow Doppler). Left Ventricle The left ventricle is normal in size. Left ventricular systolic function is normal. Ejection Fraction = 55- 60%. No regional wall motion abnormalities noted. Right Ventricle The right ventricle is normal size. The right ventricular systolic function is normal. RV systolic TD I is 16 cm/s. Atria The left atrial size is normal. Right atrial size is normal. Mitral Valve The mitral valve is normal in structure and function. There is mild mitral regurgitation. Tricuspid Valve The tricuspid valve is normal in structure and function. There is mild tricuspid regurgitation. Aortic Valve There is mild aortic sclerosis.;. No aortic regurgitation is present. Pulmonic Valve The pulmonic valve is not well visualized. Great Vessels The aortic root is normal size. Pericardium/Pleura There is no pericardial effusion. Interpretation Summary The left ventricle is normal in size. Left ventricular systolic function is normal. No regional wall motion abnormalities noted. Ejection Fraction = 55-60%. The right ventricular systolic function is normal. The left atrial size is normal. Right atrial size is normal. There is mild mitral regurgitation. There is mild tricuspid regurgitation. There is mild aortic sclerosis. There is no pericardial effusion. Previous study is not available for comparison Taras Echevarria MD 02/06/2019 12:25 PM
--- NOTE | 2019-02-06 17:21 | PN ---
Physical Exam: SUBJECTIVE:Patient examined at bedside. No overnight events reported by nursing staff. Patient states he feels better today but still has pain on ambulation and tenderness to palpation of the right leg. Patient denies any fevers, chills , nausea, vomiting, shortness of breath, and chest pain. OBJECTIVE: Vital Signs Period Temp Pulse Resp BP Sys/Ribeiro Pulse Ox Last 24 Hr 97.7 F-99.5 F 76-98 18-20 108-125/56-79 97-97 General: pleasant male; awake, alert, and in no acute distress. Head: atraumatic, normocephalic Eyes: EOMI Ears: No discharge Nose: No discharge Neck: No JVD Cardiovascular: Regular S1 and S2; no murmurs appreciated Lungs: Clear to auscultation bilaterally Abdomen: normoactive bowel sounds; no tenderness to palpation; no rebound tenderness or guarding Extremities: warmth and erythema of skin on right lower extremity up to the level of the mid-alcantara; streaking erythema noted to the level of the thigh; right foot edematous Laboratory Results - last 24 hr 02/06/19 02/06/19 06:45 06:45 WBC 5.1 RBC 4.73 Hgb 14.1 Hct 41.5 MCV 87.7 MCH 29.9 MCHC 34.1 RDW 13.3 Plt Count 138 MPV 8.8 Absolute Neuts (auto) 3.0 Neutrophils % 59.2 D Neutrophils % (Manual) 58.8 Band Neutrophils % 0.0 Lymphocytes % 26.1 D Lymphocytes % (Manual) 28.4 Monocytes % 11.7 H Monocytes % (Manual) 11 H Eosinophils % 2.4 D Eosinophils % (Manual) 2.0 Basophils % 0.6 Basophils % (Manual) 0.0 Myelocytes % (Man) 0 Promyelocytes % (Man) 0 Blast Cells % (Manual) 0 Nucleated RBC % 0 Metamyelocytes 0 Hypochromia 0 Platelet Estimate Decreased Polychromasia 0 Poikilocytosis 0 Anisocytosis 0 Microcytosis 0 Macrocytosis 0 Sodium 140 Potassium 4.1 Chloride 105 Carbon Dioxide 26 Anion Gap 9 BUN 12.2 Creatinine 1.1 Est GFR (CKD-EPI)AfAm 90.88 Est GFR (CKD-EPI)NonAf 78.41 Random Glucose 97 Calcium 8.5 Active Medications Generic Name Dose Route Start Last Admin Trade Name Freq PRN Reason Stop Dose Admin Acetaminophen 650 mg 02/04/19 22:59 02/06/19 12:05 Tylenol - PO 650 mg Q4H PRN Administration PAIN OR FEVER Diphenhydramine HCl 25 mg 02/06/19 01:30 02/06/19 14:42 Benadryl - PO 25 mg Q12H STU Administration Enoxaparin Sodium 40 mg 02/05/19 10:00 02/06/19 09:39 Lovenox - SQ Not Given DAILY STU Vancomycin HCl 1,250 mg/ 250 mls @ 166.667 mls/hr 02/06/19 02:00 02/06/19 15: 22 Dextrose IVPB 166.667 mls/hr Q12H STU Administration Protocol Ceftriaxone Sodium 2 gm/ 100 mls @ 100 mls/hr 02/05/19 14:30 02/06/19 09:40 Dextrose IVPB 100 mls/hr DAILY STU Administration Protocol Propranolol HCl 20 mg 02/05/19 22:00 02/06/19 09:39 Inderal - PO 20 mg BID STU Administration ASSESSMENT/PLAN: Patient is a 48 year old male with past medical history of migraines and previous left patellar MRSA cellulitis in 2015 who presented to the ED on 02/04 due to right lower extremity cellulitis. Right Lower Extremity Cellulitis IV fluids Continue Rocephin 2 gm, currently day 2 Continue Vancomycin as per ID consult; currently day 1, give with premed Benadryl Chronic Migraines Continue home propranolol 20 mg PO bid stu DVT Prophylaxis Continue lovenox 40 mg sq daily Visit type - Emergency Visit Emergency Visit: Yes ED Registration Date: 02/04/19 Care time: The patient presented to the Emergency Department on the above date and was hospitalized for further evaluation of their emergent condition. - New Patient This patient is new to me today: Yes Date on this admission: 02/06/19 - Critical Care Critical Care patient: No - Discharge Referral Referred to [facility] No ATTENDING PHYSICIAN STATEMENT I saw and evaluated the patient. I reviewed the resident's note and discussed the case with the resident. I agree with the resident's findings and plan as documented. SUBJECTIVE: OBJECTIVE: ASSESSMENT AND PLAN:
--- NOTE | 2019-02-06 17:46 | PN ---
Teaching Attending Note Name of Resident: Lynnette Mahan ATTENDING PHYSICIAN STATEMENT I saw and evaluated the patient. I reviewed the resident's note and discussed the case with the resident. I agree with the resident's findings and plan as documented. SUBJECTIVE: Pain in R leg has improved. OBJECTIVE: NAD. small spot of subconjunctival hemorrhage on lower conjunctiva in L eye CV: RRR, no MRG Lungs: CTAB Abd: soft, obese, NT, ND. Ext: R leg circumferential erythema. with improved erythema on thigh No skin break down Assessment/Plan: Pleasant 48 y/o man with h/o Migraines, and L knee MRSA cellulitis who presented with worsening erythema of RLE. he was diagnosed with cellulitis 1- RLE cellulitis: improved. echo with no vegetations . blood cx neg x 48 hr - cont vanc and CTX - follow anti DNAs - vanco trough at 1:20 am befoer next dose . goal 10-15 2- H/o Migraines: - cont propranolol 3- DVT PX : Lovenox
[2019-02-07] MEDS ORDERED: PT OWN MED DRAWER 7, Y5N ONE ×2 (02:07→10:19)
[2019-02-07] MEDS: diphenhydrAMINE HCL 25 MG CAPSULE (FP) PO SCH ×2 (02:08→14:11)
[2019-02-07] MEDS: VANCOMYCIN 1,250 MG in DEXTROSE 5%-WATER - 250 ML IVPB SCH ×2 (02:39→15:14)
[2019-02-07] MEDS ORDERED: DEXTROSE 5%-WATER 100 ML IVPB ONE (07:24)
[2019-02-07] MEDS: ACETAMINOPHEN 325 MG TABLET (FP) PO PRN (08:49)
[2019-02-07 08:53] LABS: BASO % 0.6 % (0-2.0); EOS % 3.5 % (0-4.5); HEMATOCRIT 42.6 % (35.4-49); HEMOGLOBIN 14.7 GM/dL (11.7-16.9); LYMPH % 29.6 % (8-40); MCH 29.7 pg (25.7-33.7); MCHC 34.5 g/dl (32.0-35.9); MEAN CELL VOLUME 86.1 fl (80-96); MEAN PLT VOLUME 8.9 fl (7.5-11.1); MONO % 10.9 % (3.8-10.2); NEUT % 55.4 % (42.8-82.8); PLATELET COUNT 166 K/MM3 (134-434); RBC 4.95 M/mm3 (4.00-5.60); RDW 13.3 % (11.9-15.9); WHITE BLOOD COUNT 4.8 K/mm3 (4.0-10.0)
[2019-02-07] MEDS: ENOXAPARIN NA (PORCINE) 40 MG/0.4 ML DISP.SYRIN SQ SCH ×2 (10:27→10:34)
[2019-02-07] MEDS: CEFTRIAXONE 2 GM in DEXTROSE 5%-WATER 100 ML IVPB SCH (10:27)
[2019-02-07] MEDS ORDERED: IBUPROFEN 400 MG TABLET (FP) PO PRN (14:54)
--- NOTE | 2019-02-07 15:00 | PN ---
Progress Note (short form) - Note Progress Note: no fevers, less fevers Vital Signs Period Temp Pulse Resp BP Sys/Ribeiro Pulse Ox Last 24 Hr 97.6 F-98.9 F 75-91 20-20 113-122/56-80 98-98 cor-rrr lungs clear abd soft,nt ext leg less erythema, lymphagitis resolved CBC, BMP 02/07/19 07:20 02/06/19 06:45 echo normal blood cultures negative a/p severe cellulitis of the leg-improving quickly-consider change to po clindamycin 300 tid and ceftin 500 bid for another week in am if improvement continues prior history of MRSA vancomycin/rocephin to continue today
--- NOTE | 2019-02-07 15:31 | PN ---
Physical Exam: SUBJECTIVE: Patient seen and examined. Pt endorsed that his leg is feeling better. pain same as the day prior OBJECTIVE: Vital Signs Period Temp Pulse Resp BP Sys/Ribeiro Pulse Ox Last 24 Hr 97.6 F-98.9 F 75-91 20-20 116-122/62-80 98-98 General: pleasant; awake, alert, and in no acute distress. Head: atraumatic, normocephalic Eyes: EOMI Ears: No discharge Nose: No discharge Neck: No JVD Cardiovascular: Regular S1 and S2; no murmurs appreciated Lungs: Clear to auscultation bilaterally Abdomen: normoactive bowel sounds; no tenderness to palpation; no rebound tenderness or guarding Extremities: warmth and erythema of skin on right lower extremity up to the level of the mid-[place]; streaking erythema noted to the level of the thigh; right foot edematous Laboratory Results - last 24 hr 02/07/19 02/07/19 02/07/19 01:15 07:20 07:20 WBC RBC Hgb Hct MCV MCH MCHC RDW Plt Count MPV Absolute Neuts (auto) Neutrophils % Lymphocytes % Monocytes % Eosinophils % Basophils % Nucleated RBC % ESR 33 H C-Reactive Protein 6.1 H Vancomycin Pre-Dose 9.8 L 02/07/19 07:20 WBC 4.8 RBC 4.95 Hgb 14.7 Hct 42.6 MCV 86.1 MCH 29.7 MCHC 34.5 RDW 13.3 Plt Count 166 D MPV 8.9 Absolute Neuts (auto) 2.7 Neutrophils % 55.4 Lymphocytes % 29.6 Monocytes % 10.9 H Eosinophils % 3.5 Basophils % 0.6 Nucleated RBC % 0 ESR C-Reactive Protein Vancomycin Pre-Dose Active Medications Generic Name Dose Route Start Last Admin Trade Name Freq PRN Reason Stop Dose Admin Acetaminophen 650 mg 02/04/19 22:59 02/07/19 08:49 Tylenol - PO 650 mg Q4H PRN Administration PAIN OR FEVER Diphenhydramine HCl 25 mg 02/06/19 01:30 02/07/19 14:11 Benadryl - PO 25 mg Q12H STU Administration Enoxaparin Sodium 40 mg 02/05/19 10:00 02/07/19 10:34 Lovenox - SQ Not Given DAILY STU Vancomycin HCl 1,250 mg/ 250 mls @ 166.667 mls/hr 02/06/19 02:00 02/07/19 02: 39 Dextrose IVPB 166.667 mls/hr Q12H STU Administration Protocol Ceftriaxone Sodium 2 gm/ 100 mls @ 100 mls/hr 02/05/19 14:30 02/07/19 10:27 Dextrose IVPB 100 mls/hr DAILY STU Administration Protocol Ibuprofen 400 mg 02/07/19 14:54 Motrin - PO Q6H PRN FEVER Propranolol HCl 20 mg 02/05/19 22:00 02/07/19 10:27 Inderal - PO 20 mg BID STU Administration ASSESSMENT/PLAN: Patient is a 48 year old male with past medical history of migraines and previous left patellar MRSA cellulitis in 2016 who presented to the ED on 02/04 due to right lower extremity cellulitis. Right Lower Extremity Cellulitis Erythema has improved but lateral edge has more redness compared to the day before Continue Rocephin 2 gm, currently day 3 Continue Vancomycin as per ID consult; currently day 2, give with premed Benadryl (Vanco Trough 9.8 with goal of 10-15) As per ID PO clindamycin 300mg TID and ceftin 500mg BID for another week if better and since cellulitis is improving quickly Echo negative for endocarditis. blood cultures negativex2 AntiDNAse pending Chronic Migraines Continue home propranolol 20 mg PO bid stu DVT Prophylaxis Continue lovenox 40 mg sq daily Visit type - Emergency Visit Emergency Visit: Yes ED Registration Date: 02/04/19 Care time: The patient presented to the Emergency Department on the above date and was hospitalized for further evaluation of their emergent condition. - New Patient This patient is new to me today: No - Critical Care Critical Care patient: No - Discharge Referral Referred to [facility] Med P.C.: No ATTENDING PHYSICIAN STATEMENT I saw and evaluated the patient. I reviewed the resident's note and discussed the case with the resident. I agree with the resident's findings and plan as documented. SUBJECTIVE: OBJECTIVE: ASSESSMENT AND PLAN:
--- NOTE | 2019-02-07 17:53 | PN ---
Teaching Attending Note Name of Resident: Lynnette Mahan ATTENDING PHYSICIAN STATEMENT I saw and evaluated the patient. I reviewed the resident's note and discussed the case with the resident. I agree with the resident's findings and plan as documented. SUBJECTIVE: No fever or chills. feels his leg is doing better. has no SOB or cp OBJECTIVE: NAD. Small spot of subconjunctival hemorrhage on lower conjunctiva in L eye which is getting better CV: RRR, no MRG Lungs: CTAB Ext: improved R leg circumferential erythema. with resolved erythema on thigh. small cut noted on R third digit next to nail Assessment/Plan: Pleasant 48 y/o man with h/o Migraines, and L knee MRSA cellulitis who presented with worsening erythema of RLE. he was diagnosed with cellulitis 1- Severe RLE cellulitis: improved. - cont vanc and CTX . vanco trough noted - blood cx neg x 72 hours - follow anti DNAs - possible PO abx tomorrow 2- H/o Migraines: - cont propranolol 3- DVT PX : Lovenox Possible dc tomorrow if cont to improve
[2019-02-08] MEDS: diphenhydrAMINE HCL 25 MG CAPSULE (FP) PO SCH ×2 (01:18→13:00)
[2019-02-08] MEDS: VANCOMYCIN 1,250 MG in DEXTROSE 5%-WATER - 250 ML IVPB SCH ×2 (01:53→14:00)
[2019-02-08 05:11] LABS: ANTI-DNAse B <78 U/mL (0-120)
[2019-02-08 07:24] LABS: BASO % 0.7 % (0-2.0); EOS % 5.2 % (0-4.5); HEMATOCRIT 42.7 % (35.4-49); LYMPH % 40.6 % (8-40); MCHC 35.1 g/dl (32.0-35.9); MEAN CELL VOLUME 85.7 fl (80-96); MEAN PLT VOLUME 8.4 fl (7.5-11.1); MONO % 9.9 % (3.8-10.2); NEUT % 43.6 % (42.8-82.8); PLATELET COUNT 172 K/MM3 (134-434); RBC 4.98 M/mm3 (4.00-5.60); RDW 12.9 % (11.9-15.9); WHITE BLOOD COUNT 5.1 K/mm3 (4.0-10.0)
--- NOTE | 2019-02-08 09:22 | PN ---
Teaching Attending Note Name of Resident: Lynnette Mahan ATTENDING PHYSICIAN STATEMENT I saw and evaluated the patient. I reviewed the resident's note and discussed the case with the resident. I agree with the resident's findings and plan as documented. SUBJECTIVE: Patient is feeling better with no acute distress, OBJECTIVE: Vital Signs Temperature 98.0 F 02/08/19 05:55 Pulse Rate 75 02/08/19 05:55 Respiratory Rate 18 02/08/19 05:55 Blood Pressure 122/70 02/08/19 05:55 O2 Sat by Pulse Oximetry (%) 100 02/07/19 21:00 GENERAL: The patient is awake, alert, and fully oriented, in no acute distress. HEAD: Normal with no signs of trauma. EYES: PERRL, extraocular movements intact, sclera anicteric, conjunctiva clear. ENT: Ears normal, oropharynx clear without exudates, moist mucous membranes. NECK: Trachea midline, full range of motion, supple. LUNGS: Breath sounds equal, clear to auscultation bilaterally, no wheezes, no crackles, no accessory muscle use. HEART: Regular rate and rhythm, S1, S2 without murmur, rub or gallop. ABDOMEN: Soft, NT,ND, normoactive bowel sounds, no guarding, no rebound, no hepatosplenomegaly, no masses. EXTREMITIES: 2+ pulses, warm, well-perfused, no edema. right lower extremity positive for cellulitis improving NEUROLOGICAL: Cranial nerves II through XII grossly intact. Normal speech, gait not observed. PSYCH: Normal mood, normal affect. SKIN: Warm, dry, normal turgor, no rashes or lesions noted CBCD WBC 5.1 K/mm3 (4.0-10.0) 02/08/19 06:05 RBC 4.98 M/mm3 (4.00-5.60) 02/08/19 06:05 Hgb 15.0 GM/dL (11.7-16.9) 02/08/19 06:05 Hct 42.7 % (35.4-49) 02/08/19 06:05 MCV 85.7 fl (80-96) 02/08/19 06:05 MCHC 35.1 g/dl (32.0-35.9) 02/08/19 06:05 RDW 12.9 % (11.9-15.9) 02/08/19 06:05 Plt Count 172 K/MM3 (134-434) 02/08/19 06:05 MPV 8.4 fl (7.5-11.1) 02/08/19 06:05 CMP Sodium 140 mmol/L (136-145) 02/06/19 06:45 Potassium 4.1 mmol/L (3.5-5.1) 02/06/19 06:45 Chloride 105 mmol/L (98-107) 02/06/19 06:45 Carbon Dioxide 26 mmol/L (21-32) 02/06/19 06:45 Anion Gap 9 MMOL/L (8-16) 02/06/19 06:45 BUN 12.2 mg/dL (7-18) 02/06/19 06:45 Creatinine 1.1 mg/dL (0.55-1.3) 02/06/19 06:45 Random Glucose 97 mg/dL (74-106) 02/06/19 06:45 Calcium 8.5 mg/dL (8.5-10.1) 02/06/19 06:45 Current Medications Generic Name Dose Route Start Last Admin Trade Name Freq PRN Reason Stop Dose Admin Acetaminophen 650 mg 02/04/19 22:59 02/07/19 08:49 Tylenol - PO 650 mg Q4H PRN Administration PAIN OR FEVER Diphenhydramine HCl 25 mg 02/06/19 01:30 02/08/19 01:18 Benadryl - PO 25 mg Q12H HALLIE Administration Enoxaparin Sodium 40 mg 02/05/19 10:00 02/07/19 10:34 Lovenox - SQ Not Given DAILY HALLIE Vancomycin HCl 1,250 mg/ 250 mls @ 166.667 mls/hr 02/06/19 02:00 02/08/19 01: 53 Dextrose IVPB 166.667 mls/hr Q12H HALLIE Administration Protocol Ceftriaxone Sodium 2 gm/ 100 mls @ 100 mls/hr 02/05/19 14:30 02/07/19 10:27 Dextrose IVPB 100 mls/hr DAILY HALLIE Administration Protocol Ibuprofen 400 mg 02/07/19 14:54 Motrin - PO Q6H PRN FEVER Propranolol HCl 20 mg 02/05/19 22:00 02/07/19 21:42 Inderal - PO 20 mg BID HALLIE Administration Home Medications Medication Instructions Recorded Mupirocin Ointment [Bactroban 2% 1 applic TP BID #1 tube 02/01/18 Ointment -] Propranolol HCl 20 mg PO BID 02/01/18 Cephalexin Monohydrate [Keflex -] 500 mg PO Q6H #28 capsule MDD 4 tab 02/04/19 Sulfamethoxazole/Trimethoprim 1 tab PO BID #14 tablet 02/04/19 [Bactrim Ds -] Alprazolam 0.25 mg PO PRN 02/06/19 Fluticasone Furoate [Arnuity 50 mcg IH DAILY 02/06/19 Ellipta] ASSESSMENT AND PLAN: Patient is a 48 y/o man with h/o Migraines, and L knee MRSA cellulitis who presented with worsening erythema of RLE and was diagnosed with cellulitis of RLE. # Acute severe RLE cellulitis: improved s/p on IV vanc and CTX . being discharged home on clindamycin and ceftin , blood cx neg so far, anti DNAs was negative , will dc him home with Clindamycin 300mg tid and ceftin 500mg BId x 7 days and bacid x 30 days as per ID recommendations. # H/o Migraines: cont propranolol dc patient home.
[2019-02-08] MEDS ORDERED: PT OWN MED DRAWER 7, Y5N ONE ×2 (10:34→13:20)
[2019-02-08] MEDS ORDERED: DEXTROSE 5%-WATER 100 ML IVPB ONE (10:35)
[2019-02-08] MEDS: CEFTRIAXONE 2 GM in DEXTROSE 5%-WATER 100 ML IVPB SCH (10:45)
[2019-02-08] MEDS: ENOXAPARIN NA (PORCINE) 40 MG/0.4 ML DISP.SYRIN SQ SCH (10:46)
--- NOTE | 2019-02-08 11:45 | PN ---
Progress Note (short form) - Note Progress Note: no fevers feels well Vital Signs Period Temp Pulse Resp BP Sys/Ribeiro Pulse Ox Last 24 Hr 97.6 F-98.7 F 75-89 18-20 112-122/65-85 100 cor-rrr lungs clear abd soft,nt ext much less erythema of the RLE, no warmth CBC, BMP 02/08/19 06:05 02/06/19 06:45 echo normal blood cultures negative a/p doing well severe cellulitis of the leg-improving quickly-can change to po clindamycin 300 tid and ceftin 500 bid for another week add probiotics as outpt for next one month prior history of MRSA f/u with his PMD
[2019-02-08 13:40] VITALS: BP 111/65; PULSE 85; TEMP 98.3
--- NOTE | 2019-02-08 15:50 | DS ---
Physical Exam: SUBJECTIVE: Patient seen and examined. Pt is in no acute distress. his pain improved, denied any fever. OBJECTIVE: Vital Signs Period Temp Pulse Resp BP Sys/Ribeiro Pulse Ox Last 24 Hr 97.9 F-98.7 F 75-89 18-20 111-122/65-85 100 PHYSICAL EXAM GENERAL: The patient is awake, alert, and fully oriented, in no acute distress. HEAD: Normal with no signs of trauma. EYES: PERRL, extraocular movements intact, sclera anicteric, conjunctiva clear. ENT: moist mucous membranes. LUNGS: Breath sounds equal, clear to auscultation bilaterally, no wheezes, no crackles, no accessory muscle use. HEART: Regular rate and rhythm, S1, S2 without murmur, rub or gallop. ABDOMEN: Soft, nontender, nondistended, normoactive bowel sounds, no guarding, no rebound, no hepatosplenomegaly, no masses. EXTREMITIES: 2+ pulses, warm, well-perfused, no edema. SKIN: erythema improved, streaking faded LABS Laboratory Results - last 24 hr 02/06/19 02/08/19 06:00 06:05 WBC 5.1 RBC 4.98 Hgb 15.0 Hct 42.7 MCV 85.7 MCH 30.0 MCHC 35.1 RDW 12.9 Plt Count 172 MPV 8.4 Absolute Neuts (auto) 2.2 Neutrophils % 43.6 D Lymphocytes % 40.6 H D Monocytes % 9.9 Eosinophils % 5.2 H Basophils % 0.7 Nucleated RBC % 0 Anti-DNase B (Strep) <78 Echo 02/06/19 LV normal size and function with no regional wall abnormalities. EF 55-60% RV normal in size and function. LA and RA normal. Mild MR, TR, mild aortic slerosis HOSPITAL COURSE: Date of Admission:02/04/19 48-year-old with past medical history of chronic migraines and previous episode of left patellar MRSA cellulitis in 2016 who presented to the emergency department on 02/04 with right leg warmth and erythema and was found to have right lower extremity cellulitis. 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 Echocardiogram was done due to subconjunctival hemorrhage found on physical examination in order to rule out infective endocarditis and was negative for any infectious pathology. Patients right lower extremity cellulitis improved on this medication regimen. Patient is being discharged on oral Clindamycin 300 mg tid and Cefitin 500 mg bid for 1 week of outpatient treatment due to history of MRSA . Bacid BID to prevent C diff complication also for one week. Date of Discharge: 02/08/19 Minutes to complete discharge: 35 Discharge Summary Reason For Visit: CELLULITIS OF RIGHT LOWER EXTREMITY,LYMPHANGITIS Current Active Problems Cellulitis (Acute) Cellulitis of knee, left (Acute) Cellulitis of left thigh (Acute) Cellulitis of right leg (Acute) History of MRSA infection (Acute) Lymphangitis (Acute) Condition: Stable - Instructions Diet, Activity, Other Instructions: You came into the ED because of an infection in your right lower leg. We gave you antibiotics for your infection. We did an ultrasound of your heart that came back negative. You were seen by ID while you were here. Your symptoms have improved and you are ready to be discharged home with some antibiotics by mouth. Medications: Please resume all of your home medications. We are sending you home with NEW medication: Please take your antibiotics Clindamycin 300mg by mouth three times a day -02/15/19 Please take your antibiotics Ceftin 500mg by mouth two times a day 02/09/19-02/15 Please take Bacid two times a day by mouth 02/09/19-02/15/19 Follow up: Please follow up with Dr Croft within one week Please follow up with the infectious disease specialist Dr Anderson within one week. If you begin to experience worsening swelling, redness of your leg, fever, bleeding, shortness of breath, chest pain please return to the Emergency Room immediately Referrals: Jordin Anderson MD [Staff Physician] - 1 Week Deny Croft MD [Primary Care Provider] - 1 Week Disposition: HOME - Home Medications Comprehensive Discharge Medication List: Ambulatory Orders Mupirocin Ointment [Bactroban 2% Ointment -] 1 applic TP BID #1 tube 02/01/18 Alprazolam 0.25 mg PO PRN 02/06/19 Fluticasone Furoate [Arnuity Ellipta] 50 mcg IH DAILY 02/06/19 Cefuroxime Axetil [Ceftin -] 500 mg PO BID #14 tablet 02/08/19 Clindamycin [Cleocin -] 300 mg PO TID #21 capsule 02/08/19 Lactobacillus Acidophilus [Bacid -] 1 each PO BID #60 capsule 02/08/19 propRANOLol HCL [Inderal -] 20 mg PO BID tablet 02/08/19 Problem List - Problems (1) Cellulitis Code(s): L03.90 - CELLULITIS, UNSPECIFIED (2) Cellulitis of right leg Code(s): L03.115 - CELLULITIS OF RIGHT LOWER LIMB (3) History of MRSA infection Code(s): Z86.14 - PERSONAL HISTORY OF METHICILLIN RESIS STAPH INFECTION This patient is new to me today: No Emergency Visit: Yes ED Registration Date: 02/04/19 Care time: The patient presented to the Emergency Department on the above date and was hospitalized for further evaluation of their emergent condition. Critical Care patient: No - Discharge Referral Referred to [facility] Med P.C.: No ATTENDING PHYSICIAN STATEMENT I saw and evaluated the patient. I reviewed the resident's note and discussed the case with the resident. I agree with the resident's findings and plan as documented. SUBJECTIVE: OBJECTIVE: ASSESSMENT AND PLAN:
[2019-02-09 05:08] LABS: ANTI-DNAse B <78 U/mL (0-120)
== END 2019-02-08 16:55 | disposition home or self-care (01) | DRG 603 ==
LOC: JER 20:58 → JERBED 22:08 → J6S 02-05 20:02
PROVIDERS: ADMIT Internal Medicine; ATTEND Internal Medicine
DX: L03.115 Cellulitis of right lower limb (principal); L03.116 Cellulitis of left lower limb; G43.809 Other migraine, not intractable, without status migrainosus; Z86.14 Personal history of Methicillin resistant Staphylococcus aureus infection; H11.32 Conjunctival hemorrhage, left eye
CPT/HCPCS: 36415; 73590-TC-RT-FY; 80048; 80053; 81003; 83605; 83735; 85025; 85651; 86140; 86215; 87040; 93005; 93010; 93306-TC; 93971-TC; 97116-GP; 97161-GP; 99283-25; 99284-25; G0480; J7030

== ENCOUNTER 2021-01-12 18:23 | Emergency (ER) | payer BC, OTHER ==
[2021-01-12] MEDS ORDERED: diphenhydrAMINE HCL 25 MG CAPSULE (FP) PO ONE (18:27)
[2021-01-12] MEDS ORDERED: DEXAMETHASONE SOD PHOSPHATE 10 MG/1 ML VIAL IM ONE (18:27)
[2021-01-12 18:29] VITALS: BP 130/98; PULSE 93; TEMP 98.3; BMI 32.5
[2021-01-12] MEDS ORDERED: diphenhydrAMINE HCL 50 MG CAPSULE ONE ×2 (18:32→18:33)
[2021-01-12] MEDS ORDERED: DEXAMETHASONE SOD PHOSPHATE 10 MG/1 ML VIAL ONE (18:32)
[2021-01-12] MEDS ORDERED: TRIAMCINOLONE ACET 0.5% CREAM 15 GM TUBE TP SCH (18:45)
[2021-01-12] MEDS ORDERED: TRIAMCINOLONE ACET 0.1% OINT 15 GM TUBE TP SCH (19:00)
== END 2021-01-12 18:56 | disposition home or self-care (01) ==
LOC: FER 18:23
PROC: 3E0233Z Introduction of Anti-inflammatory into Muscle, Percutaneous Approach (ICD-10-PCS; principal; 2021-01-12)
DX: L23.7 Allergic contact dermatitis due to plants, except food (principal)
CPT/HCPCS: 99284-25; J1100

== ENCOUNTER 2021-02-11 10:15 | Emergency (ER) | payer BC, OTHER ==
[2021-02-11 10:27] VITALS: BP 121/71; PULSE 88; TEMP 97.4; BMI 32.5
[2021-02-11] MEDS ORDERED: MECLIZINE HCL 25 MG TABLET (FP) PO ONE ×3 (10:54→11:01)
[2021-02-11] MEDS ORDERED: MECLIZINE HCL 25 MG TABLET (FP) ONE (11:03)
== END 2021-02-11 11:35 | disposition home or self-care (01) ==
LOC: FER 10:15
DX: R42 Dizziness and giddiness (principal)
CPT/HCPCS: 99283-25

== ENCOUNTER 2022-04-09 11:15 | Emergency (ER) | payer BC, OTHER ==
[2022-04-09] MEDS ORDERED: IBUPROFEN 600 MG TABLET (FP) PO ONE ×2 (11:41→11:45)
[2022-04-09 11:44] VITALS: BP 127/83; PULSE 87; RESP 16; TEMP 97.7; BMI 32.5
== END 2022-04-09 12:06 | disposition home or self-care (01) ==
LOC: FER 11:15
DX: S86.912A Strain of unspecified muscle(s) and tendon(s) at lower leg level, left leg, initial encounter (principal); W19.XXXA Unspecified fall, initial encounter
CPT/HCPCS: 99283-25

== ENCOUNTER 2023-09-05 18:44 | Emergency (ER) | payer BC ==
[2023-09-05 18:52] VITALS: BP 126/87; PULSE 98; RESP 16; TEMP 97.9; BMI 32.5
[2023-09-05] MEDS ORDERED: IBUPROFEN 600 MG TABLET (FP) PO ONE (19:11)
[2023-09-05] MEDS: IBUPROFEN 600 MG TABLET (FP) PO ONE (19:12)
== END 2023-09-05 19:50 | disposition home or self-care (01) ==
LOC: FER 18:44
DX: S69.92XA Unspecified injury of left wrist, hand and finger(s), initial encounter (principal); X50.0XXA Overexertion from strenuous movement or load, initial encounter
CPT/HCPCS: 73130-TC-LT-FY; 99283-25